=== PATIENT | female | born 1985 | race Caucasian/White ===

== ENCOUNTER 2016-08-28 14:57 | Emergency (ER) | payer OTHER ==
[~2016-08-28] VITALS: Ht 172.7 cm; Wt 60.0 kg
[2016-08-28 14:58] VITALS: BP 118/69; PULSE 83; RESP 12; TEMP 98.7; O2SAT 96
[2016-08-28] MEDS ORDERED: TRAM50TA PO (16:20)
--- NOTE | 2016-08-28 16:34 | PD ---
HPI Chief Complaint: GI Complaint Time Seen by Provider: 16:34 Travel History International Travel<30 days: Yes ([place], [place], [facility]) Contact w/Intl Traveler<30days: Yes Traveled to known affect area: No History of Present Illness HPI 31-year-old female presents to the emergency department for evaluation of vomiting, diarrhea and abdominal pain for 2 days. Patient states [place] [email or web address] [employer] yesterday and she started to have nonbloody nonbilious emesis and nonbloody diarrhea. States that she has been unable to keep any food down, has kept down only a small amount fluid. Complains of generalized crampy abdominal pain for the past day. Complains of subjective fever and chills. Denies any chest pain, shortness of breath, cough or cold symptoms, vaginal discharge, dysuria, hematuria. Denies any prior abdominal surgeries. Denies , last menstrual period was 3 weeks ago. No other complaints. PFSH Past Medical History Medical History: Denies Significant Hx ?: Not Social History Alcohol Use: No Tobacco Use: No Allergies-Medications (Allergen,Severity, Reaction): Coded Allergies: No Known Allergies (Unverified , 08/28/16) Reported Meds & Prescriptions Reported Meds & Active Scripts Active Reported Tramadol (Tramadol HCl) 50 Mg Tab 50 Mg PO Q6H PRN Review of Systems Except as stated in HPI: all other systems reviewed are Neg Physical Exam Narrative GENERAL: Well-nourished and well-developed female patient in no acute distress. SKIN: Warm and dry. HEAD: Normocephalic and atraumatic. EYES: No injection, drainage, or hyphema noted. PERRLA. EOMI. ENT: No nasal drainage noted. Oropharynx is clear. NECK: Supple and the trachea is midline. CARDIOVASCULAR: Regular rate and rhythm. RESPIRATORY: Breath sounds are equal bilaterally with no accessory muscle use, wheezing, rhonchi, or crackles. GASTROINTESTINAL: Mild periumbilical tenderness to palpation. Negative McBurney 's point. Negative Yi's sign. Abdomen is soft and nondistended. MUSCULOSKELETAL: No obvious deformities, swelling, cyanosis, or ecchymosis is present throughout the upper and lower extremities. Patient has full range of motion without any signs of neurovascular compromise. NEUROLOGICAL: Awake, alert, and oriented. Normal speech and gait. Cranial nerves are grossly intact. Data Data Last Documented VS Vital Signs Date Time Temp Pulse Resp B/P Pulse Ox O2 Delivery O2 Flow Rate FiO2 08/28/16 14:58 98.7 83 12 118/69 96 Room Air Orders Complete Blood Count With Diff (08/28/16 16:33) Comprehensive Metabolic Panel (08/28/16 16:33) Lipase (08/28/16 16:33) Ed Urine Pregnancytest Poc (08/28/16 16:33) Labs Laboratory Tests Test 08/28/16 15:35 White Blood Count 6.2 TH/MM3 Red Blood Count 4.58 MIL/MM3 Hemoglobin 13.8 GM/DL Hematocrit 40.7 % Mean Corpuscular Volume 88.8 FL Mean Corpuscular Hemoglobin 30.1 PG Mean Corpuscular Hemoglobin 33.9 % Concent Red Cell Distribution Width 12.7 % Platelet Count 179 TH/MM3 Mean Platelet Volume 9.4 FL Neutrophils (%) (Auto) 74.2 % Lymphocytes (%) (Auto) 13.6 % Monocytes (%) (Auto) 10.6 % Eosinophils (%) (Auto) 1.5 % Basophils (%) (Auto) 0.1 % Neutrophils # (Auto) 4.6 TH/MM3 Lymphocytes # (Auto) 0.8 TH/MM3 Monocytes # (Auto) 0.7 TH/MM3 Eosinophils # (Auto) 0.1 TH/MM3 Basophils # (Auto) 0.0 TH/MM3 CBC Comment DIFF FINAL Differential Comment Sodium Level 138 MEQ/L Potassium Level 3.5 MEQ/L Chloride Level 105 MEQ/L Carbon Dioxide Level 25.2 MEQ/L Anion Gap 8 MEQ/L Blood Urea Nitrogen 8 MG/DL Creatinine 0.59 MG/DL Estimat Glomerular Filtration 121 ML/MIN Rate Random Glucose 85 MG/DL Calcium Level 8.5 MG/DL Total Bilirubin 0.7 MG/DL Aspartate Amino Transf 11 U/L (AST/SGOT) Alanine Aminotransferase 17 U/L (ALT/SGPT) Alkaline Phosphatase 70 U/L Total Protein 7.5 GM/DL Albumin 3.7 GM/DL Lipase 88 U/L MDM Medical Decision Making Medical Screen Exam Complete: Yes Emergency Medical Condition: Yes Differential Diagnosis Viral illness versus gastroenteritis versus gastritis versus pancreatitis versus traveler's diarrhea Narrative Course 31-year-old female presents to the emergency department for evaluation of diarrhea, vomiting and abdominal cramping after a cruise to [facility]. Patient is afebrile, vital signs are stable. Abdominal examination is essentially benign. Initial laboratory and imaging studies have been ordered and the patient will be evaluated by another provider when a medical bed becomes available. The triage nurse is aware of the plan. The proposed plan of evaluation and treatment was discussed with the patient who verbalizes an understanding and agrees to proceed. CBC, CMP and lipase are unremarkable. Unfortunately the patient left before a medical bed became available. She did not produce a urine or stool specimen. Therefore it is against medical advice. AMA: The risks of leaving against medical advice without further evaluation treatment were discussed with the patient. These risks include cardiac dysfunction, cardiac dysrhythmia, possible heart attack, possible stroke or . The patient indicated understanding of these risks and appeared to have the capacity to make this decision. Diagnosis Primary Impression: Left against medical advice Additional Impression: Vomiting and diarrhea Disposition: 07 AGAINST MEDICAL ADVICE Breanne Sandhu Aug 28, 2016 16:34
[2016-08-28 17:16] LABS: AUTOMATED NEUTROPHIL # 4.6 TH/MM3 (1.8-7.7); BASOPHIL % 0.1 % (0.0-2.0); EOSINOPHIL # 0.1 TH/MM3 (0-0.4); EOSINOPHIL % 1.5 % (0.0-4.0); HEMATOCRIT 40.7 % (35.0-46.0); HEMO FLAGS DIFF FINAL; LYMPH % 13.6 % (9.0-44.0); LYMPHOCYTE # 0.8 TH/MM3 (1.0-4.8); MEAN CELL VOLUME 88.8 FL (80.0-100.0); MEAN CORPUSCULAR HEMOGLOBIN 30.1 PG (27.0-34.0); MEAN CORPUSCULAR HGB CONC 33.9 % (32.0-36.0); MONO % 10.6 % (0.0-8.0); NEUT % 74.2 % (16.0-70.0); PLATELET COUNT 179 TH/MM3 (150-450); RED BLOOD COUNT 4.58 MIL/MM3 (4.00-5.30); RED CELL DISTRIBUTION WIDTH 12.7 % (11.6-17.2); WHITE BLOOD COUNT 6.2 TH/MM3 (4.0-11.0)
[2016-08-28 17:43] LABS: ANION GAP 8 MEQ/L (5-15); AST (GOT) 11 U/L (15-37); BICARBONATE 25.2 MEQ/L (21.0-32.0); BLOOD UREA NITROGEN 8 MG/DL (7-18); CHLORIDE 105 MEQ/L (98-107); GLOMERULAR FILTRATION RATE 121 ML/MIN (>89); POTASSIUM 3.5 MEQ/L (3.5-5.1); SODIUM (NA) 138 MEQ/L (136-145)
[2016-08-28 17:47] LABS: ALKALINE PHOSPHATASE 70 U/L (45-117); ALT (GPT) 17 U/L (10-53); TOTAL BILIRUBIN ADULT 0.7 MG/DL (0.2-1.0)
== END 2016-08-28 22:16 | disposition left against medical advice (07) ==
LOC: NETRI 14:57
DX: R19.7 Diarrhea, unspecified (principal); R11.10 Vomiting, unspecified
CPT/HCPCS: 80053; 83690; 85025; 99284